=== PATIENT | female | born 1985 | race Caucasian/White ===

== ENCOUNTER 2020-03-22 08:25 | Inpatient (IN) | payer OTHER ==
[~2020-03-22] VITALS: Ht 157.5 cm; Wt 80.9 kg
[2020-03-23] MEDS ORDERED: CALCIUM CARBONATE 500 MG TAB.CHEW PO PRN (06:30)
[2020-03-23] MEDS ORDERED: TERBUTALINE 1 MG/ML, 1ML IVPush PRN (06:30)
[2020-03-23] MEDS ORDERED: FENTANYL PF 100 MCG/2ML IVPush PRN (06:30)
[2020-03-23] MEDS ORDERED: FENTANYL PF 100 MCG/2ML IV PRN (06:30)
[2020-03-23] MEDS ORDERED: ONDANSETRON 2MG/ML, 2ML IVPush PRN ×2 (06:30→15:30)
[2020-03-23] MEDS ORDERED: TERBUTALINE 1 MG/ML, 1ML SQ PRN (06:30)
[2020-03-23] MEDS: LACTATED RINGERS 1,000 ML IV SCH ×4 (06:40→23:30)
[2020-03-23] MEDS ORDERED: NEWBORN KIT ONE (06:42)
[2020-03-23] MEDS ORDERED: OXYTOCIN 30U/ 0.9% NaCL 500ML 500 ML ONE (06:42)
[2020-03-23 06:43] LABS: BASOPHILS % (AUTO) 0 % (0-1); EOSINOPHILS % (AUTO) 2 % (1-7); LYMPHOCYTES % (AUTO) 13 % (22-44); MEAN CORPUSCULAR HEMOGLOBIN 31.4 pg (27.0-34.8); MEAN PLATELET VOLUME 8.2 fL (7.4-10.4); MONOCYTES % (AUTO) 6 % (2-9); NEUTROPHILS % (AUTO) 80 % (42-75); PLATELET COUNT 228 x10^3/uL (130-400); RED BLOOD COUNT 4.11 x10^6/uL (3.82-5.3); RED CELL DISTRIBUTION WIDTH 13.9 % (9.6-15.2)
[2020-03-23 07:15] VITALS: BP 119/70
[2020-03-23 07:18] LABS: MD SCAN
[2020-03-23] MEDS: D5%-LACTATED RINGERS 1,000 ML IV SCH ×2 (14:30→17:24)
[2020-03-23] MEDS ORDERED: BUPIVACAINE 0.25% ONE (14:48)
[2020-03-23] MEDS ORDERED: FENTANYL PF 500 MCG, BUPIVACAINE/PF 0.5%, 30ML 62.5 ML in SODIUM CHLORIDE 0.9% 177.5 ML EPIDCONT SCH (15:00)
[2020-03-23] MEDS ORDERED: FENTANYL/BUPIV./NS/PF 250 ML EPIDCONT SCH (15:30)
[2020-03-23] MEDS ORDERED: DIPHENHYDRAMINE 50 MG/ML, 1ML IVPush PRN (15:30)
[2020-03-23] MEDS ORDERED: EPHEDRINE 50 MG/ML, 1ML IVPush PRN (15:30)
[2020-03-23] MEDS ORDERED: NALOXONE 0.4 MG/ML, 1ML IVPush PRN (15:30)
[2020-03-23] MEDS ORDERED: LACTATED RINGERS 1,000 ML IVBOLUS PRN (15:30)
[2020-03-23] MEDS ORDERED: OXYTOCIN 30U/ 0.9% NaCL 500ML 500 ML IV PRN (16:00)
[2020-03-23] MEDS ORDERED: METOCLOPRAMIDE 5 MG/ML, 2ML IVPush PRN (16:30)
[2020-03-23] MEDS ORDERED: SODIUM CITRATE/CITRIC ACID 30 ML UDC PO PRN (16:30)
[2020-03-23] MEDS ORDERED: SODIUM CITRATE/CITRIC ACID 15 ML UDC ONE (16:34)
[2020-03-23] MEDS ORDERED: METOCLOPRAMIDE 5 MG/ML, 2ML ONE (16:34)
[2020-03-23] MEDS ORDERED: LACTATED RINGERS 1,000 ML INTUTE ONE (19:00)
[2020-03-24] MEDS: D5%-LACTATED RINGERS 1,000 ML IV SCH (00:33)
[2020-03-24] MEDS: LACTATED RINGERS 1,000 ML IV SCH ×5 (00:33→20:30)
[2020-03-24] MEDS ORDERED: FENTANYL PF 100 MCG/2ML ONE ×2 (08:50→08:53)
[2020-03-24] MEDS ORDERED: PHENYLEPHRINE 10 MG/ML ONE (08:50)
[2020-03-24] MEDS ORDERED: CEFAZOLIN 1,000 MG ONE (08:50)
[2020-03-24] MEDS ORDERED: SUCCINYLCHOLINE 20 MG/ML, 10ML ONE (08:50)
[2020-03-24] MEDS ORDERED: PROPOFOL 10 MG/ML, 20ML ONE (08:50)
[2020-03-24] MEDS ORDERED: KETOROLAC 30 MG/1 ML ONE (08:50)
[2020-03-24] MEDS ORDERED: DEXAMETHASONE 4 MG/ML, 1ML ONE (08:50)
[2020-03-24] MEDS ORDERED: OXYTOCIN 10 UNITS/ML, 1ML ONE (08:50)
[2020-03-24] MEDS ORDERED: EPHEDRINE 50 MG/ML, 1ML ONE (08:50)
[2020-03-24] MEDS ORDERED: ONDANSETRON 2MG/ML, 2ML ONE (08:50)
[2020-03-24] MEDS ORDERED: hydrALAzine 20 MG/ML, 1ML IV PRN (09:00)
[2020-03-24] MEDS ORDERED: LABETALOL 5MG/ML, 20ML IV PRN (09:00)
[2020-03-24] MEDS ORDERED: MIDAZOLAM 1 MG/ML, 2ML IV PRN (09:00)
[2020-03-24] MEDS ORDERED: MEPERIDINE/PF 25MG/0.5ML IVPush PRN ×2 (09:00→11:00)
[2020-03-24] MEDS ORDERED: FENTANYL PF 100 MCG/2ML IV PRN (09:00)
[2020-03-24] MEDS ORDERED: HYDROmorphone 2 MG/ML, 1ML IVPush PRN (09:00)
[2020-03-24] MEDS ORDERED: OXYcodone 5 MG/5 ML ORAL.SOL UDC PO PRN (09:00)
[2020-03-24] MEDS ORDERED: HYDROcodone/APAP 7.5-325MG/15ML UDC PO PRN (09:00)
[2020-03-24] MEDS ORDERED: EPHEDRINE 50 MG/ML, 1ML IVPush PRN ×2 (09:00→13:30)
[2020-03-24] MEDS ORDERED: ALBUTEROL SULFATE 2.5 MG/3 ML NPPB PRN (09:00)
[2020-03-24] MEDS ORDERED: PROMETHAZINE 25 MG/ML, 1ML IV PRN (09:00)
[2020-03-24] MEDS ORDERED: ONDANSETRON 2MG/ML, 2ML IVPush PRN ×2 (09:00→13:30)
[2020-03-24] MEDS ORDERED: OXYTOCIN 30U/ 0.9% NaCL 500ML 500 ML ONE (09:07)
[2020-03-24] MEDS ORDERED: morphine SULFATE/PF 0.5 MG/ML, 10ML ONE (09:22)
[2020-03-24] MEDS ORDERED: LACTATED RINGERS 1,000 ML IVBOLUS ONE (10:00)
[2020-03-24] MEDS ORDERED: MEPERIDINE/PF 50 MG/ML ONE (10:23)
[2020-03-24] MEDS ORDERED: MISOPROSTOL 200 MCG TABLET PR PRN (10:30)
[2020-03-24] MEDS ORDERED: ONDANSETRON 2MG/ML, 2ML IV PRN (10:30)
[2020-03-24] MEDS ORDERED: CALCIUM CARBONATE 500 MG TAB.CHEW PO PRN (10:30)
[2020-03-24] MEDS ORDERED: DOCUSATE 100 MG CAPSULE PO PRN (10:30)
[2020-03-24] MEDS ORDERED: MORPHINE SULFATE 4 MG/ML, 1ML IVPush PRN (10:30)
[2020-03-24] MEDS ORDERED: AZITHROMYCIN 500 MG in SODIUM CHLORIDE 0.9% 250 ML IV ONE (10:30)
[2020-03-24] MEDS ORDERED: OXYcodone/APAP 5/325MG TABLET PO PRN ×2 (10:30→13:30)
[2020-03-24] MEDS ORDERED: morphine SULFATE 10 MG/ML, 1ML IVPush PRN (10:30)
[2020-03-24] MEDS ORDERED: OXYcodone 5 MG/5 ML ORAL.SOL UDC ONE (11:13)
[2020-03-24] MEDS: OXYTOCIN 30U/ 0.9% NaCL 500ML 500 ML IV SCH ×2 (11:56→20:30)
[2020-03-24 13:15] VITALS: BP 103/67
[2020-03-24] MEDS ORDERED: DIPHENHYDRAMINE 50 MG/ML, 1ML IVPush PRN (13:30)
[2020-03-24] MEDS ORDERED: FENTANYL PF 100 MCG/2ML IVPush PRN (13:30)
[2020-03-24] MEDS ORDERED: NALOXONE 0.4 MG/ML, 1ML IVPush PRN ×3 (13:30)
[2020-03-24] MEDS ORDERED: HYDROmorphone/PF 10 MG/ML, 1ML IVPush PRN (13:30)
[2020-03-24] MEDS ORDERED: HYDROmorphone 1 MG/ML, 1ML INJ ONE (13:37)
[2020-03-24] MEDS: KETOROLAC 30 MG/1 ML IM SCH ×2 (15:18→21:30)
[2020-03-24] MEDS: OXYcodone/APAP 5/325MG TABLET PO PRN ×2 (15:34→21:31)
[2020-03-24 16:30] VITALS: BP 93/53
[2020-03-24 19:32] LABS: MEAN CORPUSCULAR HEMOGLOBIN 31.3 pg (27.0-34.8); MEAN CORPUSCULAR HGB CONC 33.9 g/dL (32.4-35.8); MEAN PLATELET VOLUME 8.6 fL (7.4-10.4); PLATELET COUNT 191 x10^3/uL (130-400); RED BLOOD COUNT 3.75 x10^6/uL (3.82-5.3); RED CELL DISTRIBUTION WIDTH 13.8 % (9.6-15.2)
[2020-03-24 19:59] VITALS: BP 103/64
[2020-03-24 20:08] LABS: MD YES
[2020-03-24 20:09] LABS: BANDS%(MANUAL) 10 % (0-7); LYMPH#(MANUAL) 1.12 x10^3/uL (1-3.4); LYMPHS% (MANUAL) 4 % (22-44); MONOS#(MANUAL) 1.68 x10^3/uL (0.3-2.7); MONOS% (MANUAL) 6 % (2-9); SEGS% (MANUAL) 80 % (42-75)
[2020-03-24 20:10] LABS: <PLATELET ESTIMATE> ADEQUATE; <PLT MORPHOLOGY> NORMAL PLT MORPH; ANISOCYTOSIS 1+
[2020-03-24] MEDS: DOCUSATE 100 MG CAPSULE PO SCH (21:30)
[2020-03-24] MEDS: PRENATAL VIT/IRON/FA 1 EACH TABLET PO SCH (21:30)
[2020-03-25] MEDS ORDERED: RHOGAM FROM BLOOD BANK 1 NOTE EA IM/IV ONE (00:30)
[2020-03-25 00:33] VITALS: BP 122/71
[2020-03-25] MEDS: LACTATED RINGERS 1,000 ML IV SCH ×2 (02:30→06:10)
[2020-03-25] MEDS: KETOROLAC 30 MG/1 ML IM SCH (03:44)
[2020-03-25 03:45] VITALS: BP 110/68
[2020-03-25] MEDS: OXYcodone/APAP 5/325MG TABLET PO PRN ×2 (03:58→08:40)
[2020-03-25] MEDS: OXYTOCIN 30U/ 0.9% NaCL 500ML 500 ML IV SCH (06:10)
[2020-03-25] MEDS: DOCUSATE 100 MG CAPSULE PO SCH ×2 (08:39→20:01)
[2020-03-25] MEDS: PRENATAL VIT/IRON/FA 1 EACH TABLET PO SCH (08:39)
[2020-03-25 09:09] VITALS: BP 100/65
[2020-03-25] MEDS ORDERED: KETOROLAC 30 MG/1 ML IV SCH (10:30)
[2020-03-25] MEDS: OXYcodone IR 5MG TABLET PO PRN ×3 (12:23→20:01)
[2020-03-25] MEDS: IBUPROFEN 600 MG TABLET PO PRN ×2 (16:02→22:05)
[2020-03-25 19:30] VITALS: BP 112/71
[2020-03-25] MEDS: SIMETHICONE 80 MG CHEW TAB PO PRN (20:01)
[2020-03-26] MEDS: OXYcodone IR 5MG TABLET PO PRN ×6 (01:20→21:52)
[2020-03-26] MEDS: IBUPROFEN 600 MG TABLET PO PRN ×4 (03:53→22:25)
[2020-03-26 08:50] VITALS: BP 118/76
[2020-03-26] MEDS: PRENATAL VIT/IRON/FA 1 EACH TABLET PO SCH (09:28)
[2020-03-26] MEDS: ACETAMINOPHEN 325 MG TABLET PO PRN ×3 (09:28→21:51)
[2020-03-26] MEDS: DOCUSATE 100 MG CAPSULE PO SCH ×2 (09:28→21:51)
[2020-03-26] MEDS: SIMETHICONE 80 MG CHEW TAB PO PRN (17:34)
[2020-03-26 21:00] VITALS: BP 114/74
[2020-03-27] MEDS: OXYcodone IR 5MG TABLET PO PRN ×6 (01:52→21:56)
[2020-03-27] MEDS: IBUPROFEN 600 MG TABLET PO PRN ×4 (04:23→23:55)
[2020-03-27] MEDS: ACETAMINOPHEN 325 MG TABLET PO PRN ×2 (06:50→21:56)
[2020-03-27 08:50] VITALS: BP 115/78
[2020-03-27] MEDS: DOCUSATE 100 MG CAPSULE PO SCH ×2 (09:12→21:56)
[2020-03-27] MEDS: SIMETHICONE 80 MG CHEW TAB PO PRN ×2 (09:12→21:57)
[2020-03-27] MEDS: PRENATAL VIT/IRON/FA 1 EACH TABLET PO SCH (09:12)
[2020-03-27 19:35] VITALS: BP 134/82
[2020-03-28] MEDS: ACETAMINOPHEN 325 MG TABLET PO PRN ×3 (02:23→15:57)
[2020-03-28] MEDS: OXYcodone IR 5MG TABLET PO PRN ×2 (02:23→07:13)
[2020-03-28] MEDS: PRENATAL VIT/IRON/FA 1 EACH TABLET PO SCH (07:12)
[2020-03-28] MEDS: IBUPROFEN 600 MG TABLET PO PRN ×2 (07:13→13:15)
[2020-03-28 07:51] VITALS: BP 128/82
[2020-03-28] MEDS ORDERED: IBUP-1222 PO (10:57)
[2020-03-28] MEDS ORDERED: DOCU-131 PO (10:57)
[2020-03-28] MEDS ORDERED: OXYC-302 PO (10:57)
[2020-03-28] MEDS: DOCUSATE 100 MG CAPSULE PO SCH (11:16)
== END 2020-03-28 18:30 | disposition home or self-care (01) | DRG 788 ==
LOC: LDIP 03-23 06:13 → 2NW 03-24 12:52
PROVIDERS: ADMIT Obstetrics & Gynecology; ATTEND Obstetrics & Gynecology
PROC: 10D00Z1 Extraction of Products of Conception, Low, Open Approach (ICD-10-PCS; principal; 2020-03-24)
PROC: 3E0234Z Introduction of Serum, Toxoid and Vaccine into Muscle, Percutaneous Approach (ICD-10-PCS; 2020-03-25)
DX: O34.211 Maternal care for low transverse scar from previous cesarean delivery (principal); O76 Abnormality in fetal heart rate and rhythm complicating labor and delivery; Z37.0 Single live birth; Z3A.40 40 weeks gestation of pregnancy; Z80.3 Family history of malignant neoplasm of breast; Z81.8 Family history of other mental and behavioral disorders; Z82.49 Family history of ischemic heart disease and other diseases of the circulatory system; Z87.442 Personal history of urinary calculi; Z20.828 Contact with and (suspected) exposure to other viral communicable diseases; O66.40 Failed trial of labor, unspecified
CPT/HCPCS: 36415; J7121; 85025; 85461; 86592; 86850; 86900; 87635; G0378; J0456; J0690; J1100; J1170; J1885; J2274; J2405; J2704; J2790; J3010; J0330; J2370; J2590; J7050; J7120